=== PATIENT | male | born 1945 | race Caucasian/White ===

== ENCOUNTER 2017-08-24 11:50 | Inpatient (IN) | payer OTHER ==
[~2017-08-24] VITALS: Ht 172.7 cm; Wt 130.4 kg
[2017-08-24 11:55] VITALS: BP 162/91
[2017-08-24 12:09] LABS: HEMATOCRIT 43.3 % (42.0-52.0); HEMOGLOBIN 14.1 g/dl (14.0-18.0); MEAN CELL VOLUME 91.5 fl (80.0-94.0); MEAN CORPUSCULAR HGB 29.8 pg (27.0-31.0); MEAN CORPUSCULAR HGB CONC 32.6 g/dl (33.0-37.0); MEAN PLATELET VOLUME 11.6 fl (9.6-12.3); PLATELET COUNT AUTOMATED 254 10*3/uL (130-400); RED BLOOD COUNT 4.73 10*6/uL (4.50-5.90); RED CELL DISTRI WIDTH 14.6 % (0-14.5); WHITE BLOOD COUNT 15.6 10*3/uL (4.8-10.8)
[2017-08-24 12:17] LABS: ACT PARTIAL THROMBO TIME 25.5 SECONDS (20.8-31.5); INTERNATIONAL NORM RATIO 0.9 (2.0-3.5)
[2017-08-24 12:26] LABS: ATYPICAL LYMPHS 1 % (0-0); BASOPHILS 1 % (0-1); BURR CELLS FEW; SCHISTOCYTES FEW; TOTAL CELLS COUNTED 100 #CELLS
[2017-08-24 12:27] LABS: ALKALINE PHOSPHATASE 98 U/L (45-117); BUN 18 mg/dl (7-24); CHLORIDE 102 mmol/L (98-107); CREATININE 1.44 mg/dL (0.70-1.30); HOWELL-JOLLY BODIES FEW; PLATELET SUFFICIENCY NORMAL (NORMAL); POTASSIUM 4.8 mmol/L (3.5-5.1); SGOT/AST 20 IU/L (3-35); SGPT/ALT 35 U/L (12-78); SODIUM 134 mmol/L (136-145); TARGET CELLS FEW; TOTAL PROTEIN 8.7 gm/dL (6.4-8.2)
[2017-08-24] MEDS ORDERED: AMLODIPINE BES2.5 MG PO (12:28)
[2017-08-24] MEDS ORDERED: RANEXA500 M1 PO (12:29)
[2017-08-24] MEDS ORDERED: OMEPRAZOLE D/R20 MG PO (12:33)
[2017-08-24] MEDS ORDERED: ISOSORBIDE MON120 MG PO (12:34)
[2017-08-24 12:35] LABS: TROPONIN I < 0.015 ng/ml (<0.045)
[2017-08-24] MEDS ORDERED: METFORMIN1000 MG PO (12:35)
[2017-08-24] MEDS ORDERED: COZAAR100 MG PO (12:35)
[2017-08-24] MEDS ORDERED: LIPITOR80 MG PO (12:35)
[2017-08-24] MEDS ORDERED: EFFIENT10 M1 PO (12:39)
[2017-08-24] MEDS ORDERED: NOVOLOG FL100 UNIT/1 SQ ×3 (12:40→12:42)
[2017-08-24] MEDS ORDERED: LANTUS SOL100 UNIT/1 SC (12:43)
[2017-08-24 12:45] VITALS: BP 148/91
[2017-08-24 13:42] VITALS: BP 116/66
[2017-08-24] MEDS ORDERED: TOPROL XL100 MG PO (15:22)
[2017-08-24] MEDS ORDERED: BAYER ASPIRIN C81 MG PO (15:23)
[2017-08-24] MEDS ORDERED: DIPHENHYDRAMINE50 M1 PO (15:25)
[2017-08-24 16:00] VITALS: BP 161/84
[2017-08-24 20:07] VITALS: BP 163/78
[2017-08-25] VITALS: BP 159/82
[2017-08-25 06:39] LABS: HEMATOCRIT 43.1 % (42.0-52.0); HEMOGLOBIN 14.1 g/dl (14.0-18.0); MEAN CELL VOLUME 90.7 fl (80.0-94.0); MEAN CORPUSCULAR HGB 29.7 pg (27.0-31.0); MEAN CORPUSCULAR HGB CONC 32.7 g/dl (33.0-37.0); MEAN PLATELET VOLUME 12.7 fl (9.6-12.3); PLATELET COUNT AUTOMATED 245 10*3/uL (130-400); RED BLOOD COUNT 4.75 10*6/uL (4.50-5.90); RED CELL DISTRI WIDTH 14.5 % (0-14.5); WHITE BLOOD COUNT 14.7 10*3/uL (4.8-10.8)
[2017-08-25 07:26] LABS: ATYPICAL LYMPHS 3 % (0-0); TOTAL CELLS COUNTED 100 #CELLS
[2017-08-25 07:27] LABS: BURR CELLS FEW; OVALOCYTES FEW; SCHISTOCYTES FEW
[2017-08-25 07:29] LABS: PLATELET SUFFICIENCY NORMAL (NORMAL); TARGET CELLS FEW
[2017-08-25 07:49] LABS: CHLORIDE 101 mmol/L (98-107); POTASSIUM 4.5 mmol/L (3.5-5.1); SODIUM 136 mmol/L (136-145)
[2017-08-25 08:00] VITALS: BP 164/80
[2017-08-25 08:06] LABS: ALKALINE PHOSPHATASE 79 U/L (45-117); BUN 16 mg/dl (7-24); CHOLESTEROL 179 mg/dL (<200); CREATININE 1.31 mg/dL (0.70-1.30); FREE T4 1.08 ng/dl (0.76-1.46); HDL CHOLESTEROL 32 mg/dl (40-60); LDL CHOLESTEROL 80 mg/dL (9-159); SGOT/AST 24 IU/L (3-35); SGPT/ALT 38 U/L (12-78); TOTAL PROTEIN 8.1 gm/dL (6.4-8.2); TRIGLYCERIDES 336 mg/dl (<150); VLDL CHOLESTEROL 67 mg/dL (6-40)
[2017-08-25 08:27] LABS: VITAMIN D, 25-HYDROXY 16.4 ng/mL (30-100)
[2017-08-25] MEDS ORDERED: VITAMIN D5000 UNI1 PO (09:16)
== END 2017-08-25 10:29 | disposition home or self-care (01) | DRG 391 ==
LOC: ED 11:50 → 4E 12:32 → EDHOLD 12:32 → 4E 12:46
PROVIDERS: Emergency Medicine; Hospitalist
DX: K21.9 Gastro-esophageal reflux disease without esophagitis (principal); N17.1 Acute kidney failure with acute cortical necrosis; E44.0 Moderate protein-calorie malnutrition; E11.65 Type 2 diabetes mellitus with hyperglycemia; C91.10 Chronic lymphocytic leukemia of B-cell type not having achieved remission; I50.20 Unspecified systolic (congestive) heart failure; I11.0 Hypertensive heart disease with heart failure; E87.1 Hypo-osmolality and hyponatremia; Z68.41 Body mass index [BMI] 40.0-44.9, adult; R07.9 Chest pain, unspecified; I25.10 Atherosclerotic heart disease of native coronary artery without angina pectoris; E66.01 Morbid (severe) obesity due to excess calories; E78.2 Mixed hyperlipidemia; Z90.81 Acquired absence of spleen; Z90.49 Acquired absence of other specified parts of digestive tract; Z88.0 Allergy status to penicillin; Z95.5 Presence of coronary angioplasty implant and graft; I25.2 Old myocardial infarction; Z87.891 Personal history of nicotine dependence; Z88.8 Allergy status to other drugs, medicaments and biological substances; Z79.82 Long term (current) use of aspirin; Z79.899 Other long term (current) drug therapy; Z79.4 Long term (current) use of insulin; Z91.09 Other allergy status, other than to drugs and biological substances; Z82.49 Family history of ischemic heart disease and other diseases of the circulatory system